=== PATIENT | female | born 2000 | race Two or more races ===

== ENCOUNTER 2024-12-13 22:55 | Emergency (ER) | payer OTHER ==
[~2024-12-13] VITALS: Ht 154.9 cm; Wt 65.8 kg
[2024-12-14] MEDS ORDERED: KETOROLAC TROMETHAMINE 30 MG VIAL IV STA (00:06)
[2024-12-14] MEDS ORDERED: KETOROLAC TROMETHAMINE 30 MG VIAL ONE (00:26)
[2024-12-14 01:39] LABS: BASO % 0.7 % (0.1-1.2); EOS # 0.54 (0.04-0.54); EOS % 7.1 % (0.7-7.0); LYMPH # 3.56 (1.18-3.74); LYMPH % 46.7 % (19.3-53.1); MEAN PLATELET VOLUME 8.50 fl (9.4-12.4); MONO # 0.59 (0.24-0.82); MONO % 7.7 % (4.7-12.5); NEUT # 2.87 (1.56-6.13); NEUT % 37.5 % (34.0-71.1); RED CELL DISTRIBUTION WIDTH 15.2 % (11.6-14.4)
[2024-12-14 01:58] LABS: ALT/SGPT 21.0 U/L (12-78); AST/SGOT 16.0 U/L (15-37); BILIRUBIN TOTAL 0.19 mg/dL (0.3-1.2); BUN CREA RATIO 15.0 (7.0-25.0); CREATININE SERUM 0.54 mg/dL (0.55-1.02); GFR 141.17; GLOBULINA 3.7 G/DL (2.4-3.5); GLUCOSE FASTING 90.0 mg/dL (65-100); INR 1.01; OSMOLALITY SERUM 272.0 MOSM/KG (275-295)
== END 2024-12-14 04:14 ==
LOC: ER 22:55
PROVIDERS: General Practice
DX: O20.8 Other hemorrhage in early pregnancy (principal); Z3A.01 Less than 8 weeks gestation of pregnancy